=== PATIENT | male | born 1980 | race Caucasian/White ===

== ENCOUNTER 2016-07-21 10:29 | Emergency (ER) | payer OTHER ==
[2016-07-21] MEDS ORDERED: NS 1,000 ML IV ONE (11:27)
[2016-07-21] MEDS ORDERED: KETOROLAC 30 MG/1 ML SDV IVP ONE (11:28)
[2016-07-21 11:50] LABS: COLOR YELLOW; LEUKOCYTE ESTERASE,URINE NEGATIVE (NEGATIVE); NITRITE,URINE NEGATIVE (NEGATIVE)
[2016-07-21 11:54] LABS: % IMMATURE GRANULYOCYTES 0.4 % (0.0-1.1); ABSOLUTE IMMATURE GRANULOCYTES 0.03 10^3/uL (0.00-0.10); ADD DIFF? NO; ADD MORPH? NO; ADD SCAN? NO; ATYPICAL LYMPHOCYTE FLAG 0 (0-99); FRAGMENT RBC FLAG 0 (0-99); HEMATOCRIT 43.8 % (40.0-51.0); HEMOGLOBIN 15.2 g/dL (13.7-17.5); LEFT SHIFT FLG 0 (0-99); LIPEMIA HEMOLYSIS FLAG 90 (0-99); MEAN CELL HEMOGLOBIN 29.7 pg (27.9-34.1); MEAN CELL HEMOGLOBIN CONCENTR. 34.7 g/dL (32.4-36.7); MEAN CELL VOLUME 85.5 fL (81.5-99.8); MEAN PLATELET VOLUME 9.6 fL (8.7-11.7); PLATELET CLUMPS FLAG 0 (0-99); PLATELET COUNT 197 10^3/uL (150-400); RED BLOOD CELL COUNT 5.12 10^6/uL (4.40-6.38); RED CELL DISTRIBUTION WIDTH 12.1 % (11.5-15.2)
[2016-07-21 12:04] LABS: ANION GAP 16 mEq/L (8-16); CALCIUM 9.2 mg/dL (8.5-10.4); CARBON DIOXIDE 22 mEq/l (22-31); CHLORIDE 103 mEq/L (97-110); CREATININE 0.9 mg/dL (0.7-1.3); GLOMERULAR FILTRATION RATE > 60; GLUCOSE 89 mg/dL (70-100); POTASSIUM 4.1 mEq/L (3.5-5.2); SODIUM 141 mEq/L (134-144)
--- NOTE | 2016-07-21 12:17 | UCPHY ---
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 denies n/v Time Seen by Provider: 07/21/16 11:17 HPI/ROS: This patient reports right inguinal pain since lifting patient at work. He works with adults with disabilities and reports moderate pain to the groin with the bulge to the area since that time. He has a prior history of right inguinal hernia with repair is concerned might have recurrence. He also notices some lumps just inferior to the inguinal line the proximal right thigh. Reports the pain more severe with walking. ROS: No fevers or chills. HEENT: No complaints pulmonary: No complaints GI: No nausea vomiting. No abdominal distension. Integumentary: No overlying erythema to the area or other rash. : No dysuria frequency urgency or testicle pain. No urethral discharge. 7 point ROS is otherwise negative. Source: Patient Exam Limitations: No limitations - Personal History Tetanus Vaccine Date: < 10 years - Medical/Surgical History PMH: Right inguinal hernia repair Hx Asthma: No Hx Chronic Respiratory Disease: No Hx Diabetes: No Hx Cardiac Disease: No Hx Renal Disease: No Hx Cirrhosis: No Hx Alcoholism: No Hx HIV/AIDS: No Hx Splenectomy or Spleen Trauma: No Other PMH: ADD, bilateral shoulder repairs, nasal surgery, hernia repair - Family History Significant Family History: No pertinent family hx - Social History Smoking Status: Former smoker Alcohol Use: Occasionally Drug Use: None Additional Social History: Denies any STD risk factors - Physical Exam Exam: Physical Exam Vital signs are normal. General: No acute distress HEENT: Atraumatic. Eyes: Pupils equal and react to light. Extraocular motions are intact. Lungs: No respiratory distress. Cardiac: Brisk capillary refill is intact throughout. Pulses are 2+ and symmetric in the affected extremity. Abdomen: Normoactive, soft, mild inguinal bulge with Valsalva on the right anteriorly. : No herniation inguinal ring or right testicle or epididymal tenderness is appreciated. No urethral discharge. No genital lesions. Just below the inguinal line the patient has few 1-2 cm areas of swelling that feel consistent with inguinal lymph nodes. No fluctuance. Skin: No rash or pallor. Musculoskeletal: Patient has Neuro: Alert and oriented x3 with no sensorimotor deficits. Constitutional: Initial Vital Signs Temperature (C) 36.8 C 07/21/16 10:35 Heart Rate 99 07/21/16 10:35 Respiratory Rate 18 07/21/16 10:35 Blood Pressure 138/86 H 07/21/16 10:35 O2 Sat (%) 100 07/21/16 10:35 O2 Delivery Mode Room Air Allergies/Adverse Reactions: Penicillins Allergy (Verified 07/21/16 10:46) Home Medications: Medication Instructions Recorded Adderall 20 mg (RX) 20 mg DAILY 05/09/15 Ibuprofen [Motrin (*)] 600 mg PO Q6 PRN #30 tab 07/21/16 Omeprazole 07/21/16 traMADol [Ultram 50 mg (*)] 50 - 100 mg PO Q4 PRN #20 tab 07/21/16 Medical Decision Making ED Course/Re-evaluation: Toradol IV with relief CBC and urinalysis essentially normal Discussion: Patient seems to have early recurrence of inguinal hernia from lifting event at work. He also seems to have inguinal lymphadenopathy with no history exam findings suggestive of a STD. I recommended this patient follow up with general surgeon for further evaluation of inguinal symptoms. He is instructed avoid heavy lifting in the meantime. No evidence today of incarcerated hernia or other complicating factors. - Data Points Laboratory Results: Laboratory Results 07/21/16 11:50 07/21/16 11:50 Medications Given: Discontinued Medications Sodium Chloride (Ns) 1,000 mls @ 0 mls/hr IV ONCE ONE PRN Reason: Wide Open Stop: 07/21/16 11:28 Last Admin: 07/21/16 11:58 Dose: 1,000 mls Ketorolac Tromethamine (Toradol) 30 mg IVP EDNOW ONE Stop: 07/21/16 11:29 Last Admin: 07/21/16 11:58 Dose: 30 mg Departure - Departure Disposition: Home, Routine, Self-Care Clinical Impression: Rt inguinal pain, Inguinal lymphadenopathy Condition: Good Instructions: Inguinal Hernia (ED) Additional Instructions: Diagnosis: Inguinal pain-right side Urinalysis is normal. Blood count is also normal. A You may have an early recurrence of her inguinal hernia based on history and exam. Plan: Ibuprofen and Tylenol for pain. Tramadol if needed for pain that prevents sleep. No driving, alcohol or come tramadol. Follow up with Dr. Anton-general surgeon for further evaluation as an outpatient. Go the emergency department for any significant worsening despite the treatment plan. Referrals: JENN IZAGUIRRE [Other] - As per Instructions Blaine Anton MD [Medical Doctor] - As per Instructions Stand Alone Forms: Work Excuse Prescriptions: Ibuprofen [Motrin (*)] 600 mg PO Q6 PRN #30 tab PRN Reason: Pain traMADol [Ultram 50 mg (*)] 50 - 100 mg PO Q4 PRN #20 tab PRN Reason: Pain, Breakthrough - PQRS PQRS Measurement: NA
[2016-07-21 13:04] VITALS: BP 126/74; PULSE 81; RESP 14; TEMP 98.4; O2SAT 96
== END 2016-07-21 12:59 | disposition home or self-care (01) ==
LOC: CED 10:29
DX: R10.30 Lower abdominal pain, unspecified (principal); R19.09 Other intra-abdominal and pelvic swelling, mass and lump; K59.00 Constipation, unspecified; R42 Dizziness and giddiness; Z87.891 Personal history of nicotine dependence
CPT/HCPCS: 80048-PO; 81003-PO; 85025-PO; 96361-PO; 96374-PO; 99204-PO; G0463-PO; J1885